=== PATIENT | female | born 1995 | race Caucasian/White ===

== ENCOUNTER 2018-09-16 19:49 | Emergency (ER) | payer OTHER ==
[~2018-09-16] VITALS: Ht 160 cm; Wt 56.8 kg
[2018-09-16] MEDS ORDERED: BENA12.56 PO (19:57)
[2018-09-16] MEDS ORDERED: CLAR1TAB2 PO (19:57)
[2018-09-16] MEDS ORDERED: diphenhydrAMINE INJ 50MG/ML VIAL (J1200) IV ONE (20:15)
[2018-09-16] MEDS ORDERED: methylPREDNISolone INJ 125 MG/2 ML VIAL (J2930) IV ONE (20:15)
[2018-09-16] MEDS ORDERED: NS 1,000 ML IV ONE (20:15)
[2018-09-16] MEDS ORDERED: FAMOTIDINE IV BAG 20 MG in APPROPRIATE DILUENT 1 EA IV ONE (20:15)
[2018-09-16] MEDS ORDERED: PRED20TA PO (21:51)
[2018-09-16] MEDS ORDERED: PEPC1TAB5 PO (21:52)
[2018-09-16] MEDS ORDERED: BENA25CA4 PO (21:52)
[2018-09-16 21:57] VITALS: BP 112/68
== END 2018-09-16 21:58 | disposition home or self-care (01) ==
LOC: M ED 19:49
DX: T78.40XA Allergy, unspecified, initial encounter (principal); Y92.9 Unspecified place or not applicable; Y93.9 Activity, unspecified; Z79.899 Other long term (current) drug therapy; Z88.0 Allergy status to penicillin
CPT/HCPCS: 94760; 99284; J1200; J2930

== ENCOUNTER → 2019-04-19 | Outpatient (REF) | payer OTHER ==
[~2019-04-19] MED LIST: BENA12.56 PO; BENA25CA4 PO; CLAR1TAB2 PO; PEPC1TAB5 PO; PRED20TA PO
[2019-04-19 14:38] LABS: APPEARANCE, URINE CLEAR (CLEAR); BACTERIA, URINE AUTO NEGATIVE (NEGATIVE); BILIRUBIN, URINE AUTO NEGATIVE (NEGATIVE); BLOOD, URINE BLOOD 1+ (NEGATIVE); COLOR, URINE COLORLESS (YELLOW); GLUCOSE, URINE (UA) AUTO NEGATIVE (NEGATIVE); KETONE, URINE AUTO NEGATIVE (NEGATIVE); LEUKOCYTE ESTERASE, URINE AUTO NEGATIVE (NEGATIVE); NITRITE, URINE AUTO NEGATIVE (NEGATIVE); PROTEIN, URINE AUTO NEGATIVE (NEGATIVE); RBC, URINE AUTO 0 /HPF (0-3); SPECIFIC GRAVITY URINE AUTO 1.002 (1.002-1.035); SQUAMOUS EPITHELIAL CELL UR AU 0 /HPF (0-6); UROBILINOGEN, URINE AUTO 0.2 mg/dL (0.0-2.0); WBC, URINE AUTO 0 /HPF (0-3)
== END ==
LOC: M LAB REF 14:14
PROVIDERS: ATTEND Physician Assistant
DX: N39.0 Urinary tract infection, site not specified (principal)

== ENCOUNTER → 2019-07-17 | Outpatient (REF) | payer OTHER ==
[2019-07-17 16:22] LABS: INFLUENZA A AMPLIFICATION NEGATIVE (NEGATIVE); INFLUENZA B AMPLIFICATION NEGATIVE (NEGATIVE)
== END ==
LOC: M LAB REF 15:37
PROVIDERS: ATTEND Physician Assistant Medical
DX: J11.1 Influenza due to unidentified influenza virus with other respiratory manifestations (principal)

== ENCOUNTER 2020-02-19 20:40 | Inpatient (IN) | payer OTHER ==
[~2020-02-19] VITALS: Ht 160 cm; Wt 74.7 kg
[2020-02-19 21:00] VITALS: BP 124/70
[2020-02-19 22:13] VITALS: BP 123/77
[2020-02-19 22:42] LABS: HEMATOCRIT 40.7 % (36.0-47.0); HEMOGLOBIN 13.6 g/dl (12.0-15.5); MEAN CORPUSCULAR HEMOGLOBIN 29.6 pg (27.0-33.0); MEAN CORPUSCULAR HGB CONC 33.4 g/dl (32.0-36.5); MEAN CORPUSCULAR VOLUME 88.5 fl (80.0-96.0)
[2020-02-19 23:32] VITALS: BP 119/78
--- NOTE | 2020-02-19 23:38 | HPEPDOC ---
Obstetrical History & Physical General Date of Admission Feb 19, 2020 at 21:51 History of Present Illness 25yo at 40+0wks presenting for c/o worsening painful ctx's after membran e stripping earlier today. She endorses spotting VB. Denies LOF or DFM. Chief Complaint: Contractions, term Information Provided By: Patient Age: 25 : 2 Term: 1 Pre-term: 0 Abortions: 0 Livin Care Care: Good Care Dating Final EDC: Feb 19, 2020 Final EDC for Daily Update: Feb 19, 2020 Final EDC by: LMP LMP: May 15, 2019 EGA at Admission: 40 Antepartum Course Diagnos(e)s Uncomplicated Height (inches): 63 Pre- weight (lbs.): 136 Admission Weight (lbs.): 165 Change in Weight (lbs.): 29 Past Medical History Past Obstetrical History : Past Obstetrical History: Multigravida Date of Delivery: Feb 20, 2014 Gestation: 39 Type of Delivery: Spontaneous Vaginal Del. Sex of Infant: Male Weight of Infant (grams): 3200 Complications: No [employer] History: No pertinent history Past Medical History Medical History Denies Surgical History: Tonsilectomy Family History Significant Family History: No pertinent family hx Social History Marital Status: Family situation: Spouse/partner home Psychosocial History: No pertinent psych hx * Smoker: non-smoker Alcohol: Denies Drugs: denies Abuse Violence Screening Have you been hit/kicked/slapp: No Have you been sexually assault: No Imunizations Tdap status: current (11/27/2019) Influenza Status: current () Allergies Coded Allergies: Penicillins (Verified Allergy, Intermediate, RASH, 09/16/18) Physical Examination Physical Examination GENERAL: Alert and oriented times three. RESP: No exaggerated respiratory effort appreciated, airway patent and self- maintained ABDOMEN: Gravid and non-tender to touch. FETUS: Is vertex (VTX) by sterile vaginal examination (SVE), fetus is vertex (VTX) by Shashi. CARDS: well-perfused SVE: NEFG, SVE 5/80/-2, BBOW EXTREMITIES: No edema. Vital Signs/I&O Vital Signs Date Time Temp Pulse Resp B/P (MAP) Pulse Ox O2 Delivery O2 Flow Rate FiO2 02/19/20 21:00 98.2 84 18 124/70 (88) Laboratory Data [facility] Laboratory Tests 2 02/19/20 22:04: Serology Scanned Report Hepatitis B Testing 02/19/20 22:27: CBC/BMP Urine Culture: No Growth Pertinent Laboratoy Data Blood Type: A+ RBC Antibody Screen: Negative HIV: Negative Hepatitis B: Negative Rapid Plasma Reagin: Nonreactive Rubella: Immune Varicella: Immune Chlamydia/Gonorrhea: Negative Group B Streptococcus: Negative ([id number]) Quad Screen Test: Declined Cystic Fibrosis: Negative Glucose Tolerance Test: 123 Anatomy Ultrasound Ultrasound Date: Oct 02, 2019 Placenta Location: Anterior Normal Anatomy: Yes Placenta Previa: No Vaginal Examination Dilation: 6 cm Effacement: 80% Station: -1 Cervical Consistency: Soft Cervical Position: Anterior Presentation: Cephalic presentation Assessment Heart Rate (FHR): 140 Variability: Moderate Accelerations: Positive Decelerations: None Tocometer Contractions: Yes Frequency: every 2-5 min. Multi-drug resistant Organism: No history of MDRO Assessment/Plan Assessment 25yo at 40+0wks presenting for c/o ctx's and found to be in active la bor. GBS neg, EFW 3300g. Plan Admit and orient. Insurance Risk Manager and consent. Diet: clears as tolerated Group B Streptococcus (GBS) [negative]. Labs and intravenous (IV) per unit protocol. Counseled on Pitocin and augmentation of labor (IOL). Lactated Ringers (LR): 125mL/hr. Anticipate [normal spontaneous delivery ()]. C-S as appropriate. CAROLINA BANEGAS DO Feb 19, 2020 23:38
[2020-02-20] VITALS (11 sets, daily range): BP systolic 95–122; BP diastolic 54–69
[2020-02-20] MEDS ORDERED: BUTORPHANOL 2 MG/ML INJ (J0595) As Ordered ONE (01:25)
--- NOTE | 2020-02-20 01:27 | IPNPDOC ---
Obstetrical Progress Note Date of Service Feb 20, 2020 Subjective Patient reporting gush of clear fluid at 0055 and worsening pain with ctx's. Patient now desires pain medications. Objective Vital Signs Date Time Temp Pulse Resp B/P (MAP) Pulse Ox O2 Delivery O2 Flow Rate FiO2 02/19/20 21:00 98.2 84 18 124/70 (88) Assessment Heart Rate (FHR): 125 Variability: Increased Accelerations: Positive Decelerations: None, Other (baby has been falling off the monitor due to maternal positioning/movement) Heart Rate Tracing: Category I Tocometer Contractions: Yes Frequency: every 1-3 min. Sterile Vaginal Examination Dilation: 6 cm Effacement (%): 100% Station: -1 Cervical Consistency: Soft Cervical Position: Anterior Postion/Presentation: Cephalic presentation Assessment and Plan Status: Reassuring Group B Streptococcus: Negative Anticipate: Vaginal Delivery Additional Comments 25yo at 40+1wks in active labor. SROM of clear fluid noted. Patient wanted epidural. In review of patient's labs, noted that platelet count not reported due to clumping of platelets. Patient requested IV pain meds while awaiting repeat labs for epidural. Will give stadol/phenergan per patient request. Patient counseled on risk of respiratory depression, acknowledged understanding and desired to proceed with IV pain meds. FHRT cat I although intermittent periods of difficulty monitoring FHR due to maternal movement/positioning. Will continue to monitor for expectant . CAROLINA BANEGAS DO Feb 20, 2020 01:27
[2020-02-20] MEDS ORDERED: OXYTOCIN 30 UNITS IN 0.9% NaCl 500ML IV BAG (J2590) As Ordered ONE (02:14)
--- NOTE | 2020-02-20 02:48 | IPNPDOC ---
Obstetrical Progress Note Date of Service Feb 20, 2020 Subjective Patient reporting pelvic pressure and endorsing pain with ctx's. She reports feeling urge to push. Desires epidural. Objective Vital Signs Date Time Temp Pulse Resp B/P (MAP) Pulse Ox O2 Delivery O2 Flow Rate FiO2 02/19/20 21:00 98.2 84 18 124/70 (88) Assessment Heart Rate (FHR): 130 Variability: Moderate Accelerations: None Decelerations: None Heart Rate Tracing: Category I Tocometer Contractions: Yes Frequency: every 1-3 min. Sterile Vaginal Examination Effacement (%): 100% Station: +1 Cervical Consistency: Soft Cervical Position: Anterior Postion/Presentation: Cephalic presentation Assessment and Plan Status: Reassuring Group B Streptococcus: Negative Anticipate: Vaginal Delivery Additional Comments Conchita is a 25yo at 40+1wks admitted for active labor. Fluid remains clear on SVE. Patient at 8/c/+1. Unfortunately, platelets unable to be resulted despite 3 different lab attempts due to platelet clumping. Per labor relations analyst, most likely normal platelet count but unable to give a specific number and therefore anesthesia unable to place epidural. Patient continuing to labor on maternal effort alone. FHRT cat I. Will continue to monitor for expectant . CAROLINA BANEGAS DO Feb 20, 2020 02:48
[2020-02-20] MEDS ORDERED: ACETAMINOPHEN 500 MG TAB As Ordered ONE (04:08)
[2020-02-20] MEDS ORDERED: IBUPROFEN 800 MG TAB As Ordered ONE (04:08)
--- NOTE | 2020-02-20 04:14 | DNPDOC ---
[facility] Delivery Note Delivery Note DATE OF DELIVERY: [id number] PREDELIVERY DIAGNOSIS: 40+1/7 weeks' gestation and labor. POST DELIVERY DIAGNOSIS: Delivered. PROCEDURE: Spontaneous vaginal delivery PURCHASING BUYER: Dr. Carolina Banegas ANESTHESIA: Local ESTIMATED BLOOD LOSS: 200 mL. FINDINGS: 7 pound 15 ounce 3600g male infant, Score 9/9, compound posterior hand. DELIVERY SUMMARY: Conchita is a 25yo admitted at 40+0wks for labor. Patient progressed on maternal effort alone to c/c/+2. Patient was unable to get epidural due to no platelet count result due to clumping. With good maternal effort, spontaneous vaginal delivery. Presentation was OA with restitution to LOT with right shoulder anterior position. Posterior compound hand noted anteriorly therefore posterior shoulder delivered first followed by anterior shoulder and body without difficulty. Infant with spontaneous cry on delivery field therefore placed on maternal abdomen and care transferred to Team. No nuchal/foot/body cord noted. No meconium appreciated. Pitocin IV bolus initiated upon delivery of . After 5 minutes of delayed cord clamping, three vessel cord clamped x2 and cut by FOB. Third stage spontaneous with intact placenta. Fundal massage revealed firm uterine tone. Inspection notable for 1st degree perineal laceration that was repaired using 2-0 vicryl in routine fashion with good approximation of tissue and hemostasis under local anesthesia with 1% lidocaine plain. EBL 200ml. Mother and infant stable and bonding upon my leaving the room. CAROLINA BANEGAS DO Feb 20, 2020 04:14
[2020-02-20] MEDS: CALCIUM CARBONATE 500 MG CHEW U/D PO PRN ×3 (08:56→20:03)
[2020-02-21 06:00] VITALS: BP 104/51
[2020-02-21] MEDS: CALCIUM CARBONATE 500 MG CHEW U/D PO PRN (16:45)
[2020-02-21 18:00] VITALS: BP 117/63
[2020-02-22] MEDS: CALCIUM CARBONATE 500 MG CHEW U/D PO PRN (05:53)
[2020-02-22 06:00] VITALS: BP 109/56
--- NOTE | 2020-03-01 09:08 | IPN ---
DATE: 02/20/2020 SUBJECTIVE: This patient and requested circumcision of her male infant. After discussing risks and benefits of circumcision, the medical and non-medical indications, the penile block and aftercare, expressed understanding of penile block and aftercare, signed the consent form, all questions were answered, 20 minute discussion. We await clearance by the bankman. TRACIE
--- NOTE | 2020-03-18 16:49 | DSES ---
DATE OF ADMISSION: 02/19/2020 DATE OF DISCHARGE: 02/22/2020 BRIEF HISTORY: This lady is a 25-year-old 2, para 2; was at 40 weeks of gestation with spontaneous vaginal delivery of a male . She is presently here because baby is under lights for bilirubin; however, she is going to be discharged today. Her blood pressure on discharge is 109/56, respirations 17, pulse 74, temperature is 98.3. She has no issues, no complaints. She is , doing well. Baby's bilirubin will be checked today and hopefully discharge for baby. Patient will have a six-week check at [facility] and the medications were dispenses at [place]. All questions were answered; 20-minute discussion. TRACIE
== END 2020-02-22 11:00 | disposition home or self-care (01) | DRG 807 ==
LOC: M LDO 20:40 → M LDI 21:51 → M OBS 02-20 08:37
PROC: 10E0XZZ Delivery of Products of Conception, External Approach (ICD-10-PCS; principal; 2020-02-20)
PROC: 0HQ9XZZ Repair Perineum Skin, External Approach (ICD-10-PCS; 2020-02-20)
DX: O70.0 First degree perineal laceration during delivery (principal); Z37.0 Single live birth; Z3A.40 40 weeks gestation of pregnancy